=== PATIENT | female | born 1955 | race Caucasian/White ===

== ENCOUNTER 2023-09-07 17:00 | Outpatient (CLI) | payer MEDICARE, OTHER | END 2023-09-07 17:01 | disposition home or self-care (01) | LOC: SLEEPLAB 17:00 | PROVIDERS: ATTEND Internal Medicine | DX: G47.33 Obstructive sleep apnea (adult) (pediatric) (principal); R51.9 Headache, unspecified; I10 Essential (primary) hypertension; M19.90 Unspecified osteoarthritis, unspecified site; K57.92 Diverticulitis of intestine, part unspecified, without perforation or abscess without bleeding; E89.0 Postprocedural hypothyroidism; Z85.3 Personal history of malignant neoplasm of breast | CPT/HCPCS: 95810 ==

== ENCOUNTER 2023-10-25 16:00 | Outpatient (CLI) | payer MEDICARE, OTHER | END 2023-10-25 16:01 | disposition home or self-care (01) | LOC: SLEEPLAB 16:00 | PROVIDERS: ATTEND Internal Medicine | DX: G47.33 Obstructive sleep apnea (adult) (pediatric) (principal); I10 Essential (primary) hypertension; R51.9 Headache, unspecified; M19.90 Unspecified osteoarthritis, unspecified site; K57.92 Diverticulitis of intestine, part unspecified, without perforation or abscess without bleeding; Z85.3 Personal history of malignant neoplasm of breast | CPT/HCPCS: 95811 ==